=== PATIENT | male | born 1995 | race Two or more races ===

== ENCOUNTER 2016-12-03 00:18 | Emergency (ER) | payer OTHER ==
[2016-12-03 00:28] VITALS: BP 118/67; PULSE 86; RESP 18; TEMP 99; O2SAT 95
--- NOTE | 2016-12-03 00:44 | EDPHY ---
H & P Stated Complaint: THROAT PAIN, COUGH AND NECK PAIN. 2 DAYS OF PCN NOW MORE SWOLLEN Time Seen by Provider: 12/03/16 00:25 HPI/ROS: CHIEF COMPLAINT: "My tonsils hurt" HISTORY OF PRESENT ILLNESS: 21-year-old immunocompetent male seen 2 days ago at Urgent Care diagnosis strep pharyngitis started on antibiotics at that time, complaining of continued enlargement of his bilateral tonsils and right submandibular adenopathy which is tender. No change in voice. No fetid odor. No nuchal rigidity. No trismus or drooling. REVIEW OF SYSTEMS: A ten point review of systems was performed and is negative with the exception of the items mentioned in the HPI PAST MEDICAL & SURGICAL HISTORY: No pertinent medical or surgical history SOCIAL HISTORY: Nonsmoker PHYSICAL EXAM (Prior to examination, patient consented to physical exam, hands were washed and my usual and customary physical exam procedures followed) 1) GENERAL: Well-developed, well-nourished, alert and oriented. Appears nontoxic 2) HEAD: Normocephalic, atraumatic 3) HEENT: Pupils equal, round, reactive to light bilaterally. Sclera anicteric. Oropharynx: Bilaterally enlarged, symmetrical, exudate of tonsils with no pointing of the uvula. No trismus no drooling. Floor of mouth soft no evidence of Mo's angina. Ears bilaterally with normal tympanic membranes. 4) NECK: Full range of motion, no meningeal signs. Bilateral tender submandibular adenopathy. 5) LUNGS: Clear auscultation bilaterally, no wheezes, no rhonchi, no retractions. 6) HEART: Regular rate and rhythm, no murmur, no heave, no gallop. 7) ABDOMEN: No guarding, no rebound, no focal tenderness, no left upper quadrant pain no splenomegaly. 8) MUSCULOSKELETAL: Moving all extremities, no focal areas of tenderness, no obvious trauma. No peripheral edema or discoloration. 9) BACK: No CVA tenderness, 10) SKIN: No rash, no petechiae. 11) Psychiatric: Patient is oriented X 3, there is no agitation. DIFFERENTIAL DIAGNOSIS: [ in no particular include but limited to strep pharyngitis, peritonsillar abscess, mononucleosis, meningitis - Personal History Current Tetanus/Diphtheria Vaccine: Yes Current Tetanus Diphtheria and Acellular Pertussis (TDAP): Yes - Medical/Surgical History Hx Asthma: No Hx Chronic Respiratory Disease: No Hx Diabetes: No Hx Cardiac Disease: No Hx Renal Disease: No Hx Cirrhosis: No Hx Alcoholism: No Hx HIV/AIDS: No Hx Splenectomy or Spleen Trauma: No Other PMH: DENIES - Social History Smoking Status: Never smoked Constitutional: Initial Vital Signs Temperature (C) 37.2 C 12/03/16 00:19 Heart Rate 86 12/03/16 00:19 Respiratory Rate 18 12/03/16 00:19 Blood Pressure 118/67 12/03/16 00:19 O2 Sat (%) 95 12/03/16 00:19 O2 Delivery Mode Room Air Allergies/Adverse Reactions: No Known Allergies Allergy (Unverified 12/03/16 00:24) Home Medications: Medication Instructions Recorded Penicillin V Potassium [Penicillin 500 mg PO 12/03/16 VK] methylPREDNISolone [Medrol Dose 4 mg PO DAILY #1 ea 12/03/16 Trell] Medical Decision Making ED Course/Re-evaluation: 12:42 a.m.: Doubt peritonsillar abscess, doubt meningitis. we discussed possibility of mononucleosis. No abdominal or flank pain or splenomegaly appreciated on exam. I recommended starting the patient on steroids. Recommend ENT follow-up. Usual And customary oropharyngeal precautions and instructions provided. Departure - Departure Disposition: Home, Routine, Self-Care Clinical Impression: Acute streptococcal pharyngitis Condition: Good Instructions: Strep Throat (ED) Additional Instructions: Return to the ER immediately if you cannot swallow, have drooling, fevers, neck stiffness, cannot open your jaw, or any other symptoms that concern you. Referrals: Yan Strong MD [Medical Doctor] - 12/05/16 Prescriptions: methylPREDNISolone [Medrol Dose Trell] 4 mg PO DAILY #1 ea
[2016-12-03] MEDS ORDERED: DEXAMETHASONE 4 MG TAB PO ONE (00:45)
== END 2016-12-03 01:11 | disposition home or self-care (01) ==
DX: J02.0 Streptococcal pharyngitis (principal)